=== PATIENT | male | born 1985 | race Caucasian/White ===

== ENCOUNTER 2021-05-15 13:40 | Emergency (ER) | payer OTHER, SELFPAY ==
[2021-05-15 13:46] VITALS: BP 151/76; PULSE 64; RESP 18; TEMP 36.7; O2SAT 99; BMI 25.0
[2021-05-15 14:44] VITALS: BP 129/61; PULSE 73; O2SAT 98
--- NOTE | 2021-05-15 15:09 | PC.NURSE ---
patient discharged to home by another nurse
--- NOTE | 2021-05-15 18:43 | ED_ITS ---
HPI - Extremity Problem <JÚNIOR Dickinson - Last Filed: 05/15/21 18:50> General Chief complaint: Extremity Problem,Nontraumatic Stated complaint: LT CALF PAIN Time Seen by Provider: 05/15/21 14:01 Source: patient Mode of arrival: Ambulatory Limitations: no limitations History of Present Illness HPI Narrative: 35-year-old male presents to the ED for left calf pain which started about 2 weeks ago after he developed a Charley horse in the middle of the night. He reports that he is very active and had quite a bit of activity before this night and so he was not surprised that he had a muscle cramp that night, but it has not gotten any better since it started. He denies any lower extremity swelling, he denies any fever or local redness, he reports that he still able to walk normally that he does not have any knee pain, and that is just been up bothersome. He denies any recent illness, he does not take any hormone medications, and he is pretty active most of the time although at work he does sit a lot. He has no history of blood clots, bleeding disorders, or any family history of blood clots. Related Data Home Medications Medication Instructions Recorded Confirmed No Known Home Medications 05/15/21 05/15/21 Allergies Allergy/AdvReac Type Severity Reaction Status Date / Time Sulfa (Sulfonamide Allergy Mild Hives Verified 05/15/21 13:51 Antibiotics) Review of Systems <JÚNIOR Dickinson - Last Filed: 05/15/21 18:50> Review of Systems Narrative: General: denies fever, chills Head/Neck: denies headache, neck pain Eyes: denies visual changes, eye pain Cardio: denies chest pain, palpitations Respiratory: denies shortness of breath, cough GI: denies abdominal pain, nausea, vomiting, or diarrhea : denies dysuria, hematuria MSK: denies joint pain, muscle weakness, left calf pain Skin: denies rash, itching Neuro: denies numbness, tingling Patient History <JÚNIOR Dickinson - Last Filed: 05/15/21 18:50> Social History Smoking Status: Never smoker Smoking Status: Never smoker alcohol intake frequency: 0-2 drinks per day Substance Use Type: does not use Exam <JÚNIOR Dickinson - Last Filed: 05/15/21 18:50> Narrative Exam Narrative: Independently reviewed vitals signs and nursing notes. General: Awake, alert, nontoxic, no cardiorespiratory distress Head/Neck: Atraumatic, neck full range of motion Eyes: EOMI, conjunctiva normal Nose: nares patent, no rhinorrhea Mouth/Throat: moist mucus membranes, posterior pharynx normal, no oral lesions Cardio: Regular rate and rhythm, no peripheral edema Respiratory: respirations unlabored without wheezing, stridor, or rales. No retractions. GI: Abdomen soft, nontender MSK: Moves all extremities, neurovascularly intact, left calf is soft, no masses palpable, no edema, erythema, increased warmth, bruising, or lower extremity swelling. Pulses are 2+ in bilateral lower extremities. Skin: Normal capillary refill, no rash Neuro: Normal speech and cognition, normal gait Initial Vital Signs Initial Vital Signs: Vital Signs Temperature 98.0 F 05/15/21 13:46 Pulse Rate 64 05/15/21 13:46 Respiratory Rate 18 05/15/21 13:46 Blood Pressure 151/76 H 05/15/21 13:46 Pulse Oximetry 99 05/15/21 13:46 <Sarina Sheehan DO - Last Filed: 05/20/21 07:15> Initial Vital Signs Initial Vital Signs: Vital Signs Temperature 98.0 F 05/15/21 13:46 Pulse Rate 64 05/15/21 13:46 Respiratory Rate 18 05/15/21 13:46 Blood Pressure 151/76 H 05/15/21 13:46 Pulse Oximetry 99 05/15/21 13:46 Course <JÚNIOR Dickinson - Last Filed: 05/15/21 18:50> Vital Signs Vital signs: Vital Signs - 8 hr 05/15/21 13:46 05/15/21 14:44 Temperature 98.0 F Pulse Rate 64 73 Respiratory Rate 18 Blood Pressure 151/76 H 129/61 Pulse Oximetry 99 98 <Sarina Sheehan DO - Last Filed: 05/20/21 07:15> Vital Signs Vital signs: Vital Signs - 8 hr 05/15/21 13:46 05/15/21 14:44 Temperature 98.0 F Pulse Rate 64 73 Respiratory Rate 18 Blood Pressure 151/76 H 129/61 Pulse Oximetry 99 98 MDM - Extremity (Nontraumatic) <April JÚNIOR Cortes - Last Filed: 05/15/21 18:50> [facility] Narrative Medical decision making narrative: 35-year-old male presents to the ED for left calf pain for the last 2 weeks which started in the middle of the night. This is most likely a muscle strain, there is no evidence of lower extremity thrombosis, his Wells score is 0, he has knee pain or changes to his gait, and he is able to flex and relax his calf muscles. Very, very low suspicion for a lower extremity DVT, ultrasound was not available for lower extremity Doppler, and his exam and history is very reassuring. Patient is appropriate and amenable to discharge home. Vital signs are stable on repeat examination is unremarkable. Patient has been informed of results. Patient has been given strict return to ER precautions for any new or worsening symptoms. Patient understands to follow up closely with outpatient providers as instructed. Patient understands plan and agrees to discharge home. All questions and concerns answered at this time. Discharge Plan Departure Patient Disposition: Home Clinical Impression: Pain of left calf Instructions: Calf Muscle Strain Activity Restrictions/Additional Instructions: This is most likely a calf strain, however it should get better with rest, light activity like walking, ice, ibuprofen and Tylenol. If after week it is persistent and does not get any better I would try make an appointment with her PCP and see if you can get seen by sports medicine. *What to do: *Please continue to take your regular medications as directed. [ ] New medication prescriptions sent to your pharmacy: [ ] [ ] New medication written as a paper prescription [ x] No new medications given *Please follow up with your primary care provider in 2-3 days, call for an appointment. Let them know you were seen in the Emergency Department and that we ask that you be seen in follow up. We will electronically transmit a record of today's note if your PCP is in our system *If you do not have a primary care provider please contact the [facility] Resource line at [phone]. They will ask some questions about your medical history and help get you set up with a doctor in the community. *Return to Emergency Department if you should have any new, worsening or concerning symptoms, such as [fever greater than 101F, chills, worsening pain, persistent vomiting or other bothersome symptoms] Prescriptions: No Action No Known Home Medications RF: 0 Referrals: David Almonte MD [Non-Staff] - <Sarina Sheehan DO - Last Filed: 05/20/21 07:15> Cosign ED Attending Emiliano Attestation: I was immediately available in the department for consultation. Documentation has been reviewed. I agree with assessment and plan.
== END 2021-05-15 15:11 | disposition home or self-care (01) ==
PROVIDERS: Emergency Provider Nurse Practitioner Critical Care Medicine
DX: M79.605 Pain in left leg (principal)
CPT/HCPCS: 99281